=== PATIENT | female | born 1955 | race Caucasian/White ===

== ENCOUNTER 2021-12-17 22:21 | Emergency (ER) | payer MEDICARE, OTHER ==
[~2021-12-17] VITALS: Ht 157.5 cm; Wt 83.9 kg
--- NOTE | 2021-12-17 22:38 | NUR ---
Dr. De at bedside, MSE in progress.
[2021-12-17] MEDS ORDERED: OXYCODONE/APAP 5-325 MG TABLET PO ONE (23:15)
[2021-12-17] MEDS ORDERED: OXYCODONE/APAP 5-325 MG TABLET ONE (23:22)
[2021-12-18] MEDS ORDERED: OXYC-128 PO (00:05)
[2021-12-18] MEDS ORDERED: BLOO-1730 MC (00:05)
--- NOTE | 2021-12-18 00:10 | NUR ---
Patient discharged to home in stable condition. Written and verbal after care instructions given. Patient verbalizes understanding of instructions. Stressed follow up or return to ER for worsening s/s. Patient is a/ox4, NAD noted. Patient is able to walk with steady gait
[2021-12-18 00:11] VITALS: BP 140/91
[2021-12-19] MEDS ORDERED: CARI350T PO (16:50)
[2021-12-19] MEDS ORDERED: ICOS1CAP PO (16:57)
[2021-12-19] MEDS ORDERED: LOSA50TA39 PO (16:57)
== END 2021-12-18 00:11 | disposition home or self-care (01) ==
LOC: ER 22:21
DX: M12.812 Other specific arthropathies, not elsewhere classified, left shoulder (principal); E11.65 Type 2 diabetes mellitus with hyperglycemia; E78.5 Hyperlipidemia, unspecified; Z98.84 Bariatric surgery status; I10 Essential (primary) hypertension
CPT/HCPCS: 72125; A4663

== ENCOUNTER 2021-12-19 16:32 | Emergency (ER) | payer MEDICARE, OTHER ==
[~2021-12-19] VITALS: Ht 160 cm; Wt 83.5 kg
[~2021-12-19 16:32] MED LIST: BLOO-1730 MC; OXYC-128 PO
[2021-12-19] MEDS ORDERED: CARI350T PO (16:50)
[2021-12-19] MEDS ORDERED: ICOS1CAP PO (16:57)
[2021-12-19] MEDS ORDERED: LOSA50TA39 PO (16:57)
[2021-12-19] MEDS ORDERED: KETOROLAC TROMETHAMINE 30 MG INJ IM ONE (17:00)
--- NOTE | 2021-12-19 17:00 | NUR ---
Pt c/o left side neck pain, radiating to the left shoulder. Pt seen by
[2021-12-19] MEDS ORDERED: KETOROLAC TROMETHAMINE 30 MG INJ ONE (17:02)
--- NOTE | 2021-12-19 17:30 | NUR ---
Pt given medication per MD's order. Pt tolerated well.
--- NOTE | 2021-12-19 17:50 | NUR ---
Pt is still c/o pain. made aware
[2021-12-19] MEDS ORDERED: HYDROMORPHONE 1 MG/1 ML DISP.SYRIN ONE (18:10)
--- NOTE | 2021-12-19 18:10 | NUR ---
pain medications administered per MD orders, tolerated well.
[2021-12-19] MEDS ORDERED: HYDROMORPHONE 1 MG/1 ML DISP.SYRIN IM ONE (18:15)
--- NOTE | 2021-12-19 19:07 | NUR ---
Patient discharged to home in stable condition. Written and verbal after care instructions given. Patient verbalizes understanding of instructions. Stressed follow up or return to ER for worsening s/s.
[2021-12-19 19:10] VITALS: BP 168/91
== END 2021-12-19 19:15 | disposition home or self-care (01) ==
LOC: ER 16:32
DX: M54.12 Radiculopathy, cervical region (principal); E11.9 Type 2 diabetes mellitus without complications; E78.5 Hyperlipidemia, unspecified; Z98.84 Bariatric surgery status; Z79.899 Other long term (current) drug therapy
CPT/HCPCS: 99284; 96372 ×2; J1885; J1170; A4663